=== PATIENT | female | born 1960 | race Two or more races ===

== ENCOUNTER 2021-07-23 19:43 | Emergency (ER) | payer OTHER ==
[~2021-07-23] VITALS: Ht 165.1 cm; Wt 71.2 kg
[2021-07-23] MEDS ORDERED: IPRATROPIUM BROMIDE 0.5 MG/2.5 ML NEBU NEB ONE (20:00)
[2021-07-23] MEDS ORDERED: ALBUTEROL SULFATE 2.5 MG/3 ML NEBU NEB ONE (20:00)
--- NOTE | 2021-07-23 20:00 | NUR ---
pt placed in room 5. a/o, able to speak in complete sentences. states she has short of breath. RA pulse ox 98.
--- NOTE | 2021-07-23 20:03 | NUR ---
lab at bedside. RT called for breathing treatment.
[2021-07-23 20:11] LABS: HEMATOCRIT 39.1 % (31.2-41.9); MEAN CORPUSCULAR HEMOGLOBIN 31.3 uug (24.7-32.8); PLATELET COUNT (AUTO) 269 K/uL (179-408)
[2021-07-23 20:25] LABS: CREATININE 0.8 mg/dL (0.6-1.3); POTASSIUM 3.4 mmol/L (3.5-5.1)
[2021-07-23] MEDS ORDERED: IPRATROPIUM BROMIDE 0.5 MG/2.5 ML NEBU ONE (20:26)
[2021-07-23] MEDS ORDERED: ALBUTEROL SULFATE 2.5 MG/ 0.5 ML NEBU ONE (20:26)
[2021-07-23] MEDS ORDERED: POTASSIUM BICARBONATE/CIT AC 25 MEQ TABLET.EFF PO ONE (21:00)
[2021-07-23] MEDS ORDERED: POTASSIUM BICARBONATE/CIT AC 25 MEQ TABLET.EFF ONE (21:16)
[2021-07-23] MEDS ORDERED: PRED50TA PO (21:22)
[2021-07-23] MEDS ORDERED: ALBU6.7H9 INH (21:22)
--- NOTE | 2021-07-23 21:37 | NUR ---
Patient discharged to home in stable condition. Written and verbal after care instructions given. Patient verbalizes understanding of instructions. Stressed follow up or return to ER for worsening s/s. pt ambulated with steady gait. no complant of SOB or pain.
[2021-07-23 21:38] VITALS: BP 135/85
== END 2021-07-23 21:38 | disposition home or self-care (01) ==
LOC: ER 19:46
DX: J45.909 Unspecified asthma, uncomplicated (principal); E87.6 Hypokalemia; Z88.2 Allergy status to sulfonamides; Z88.8 Allergy status to other drugs, medicaments and biological substances; Z79.899 Other long term (current) drug therapy
CPT/HCPCS: 36415; 85025; 93005; A4663; J3590